=== PATIENT | male | born 1970 | race African-American/Black ===

== ENCOUNTER 2016-08-24 06:54 | Day surgery (SDC) | payer MEDICARE, MEDICAID ==
[~2016-08-24 06:54] MED LIST: CEFAZOLIN 1 GM/D5W RTU 1 GM/50 ML RTUPB IV PRN; FENTANYL CITRATE INJ/PF 250 MCG/5 ML AMPULE ONE; LIDOCAINE 0.5% INJ-PF (5 MG/ML) 50 ML SDV ONE; MIDAZOLAM 2 MG/2 ML INJ ONE; PROPOFOL INJ 200 MG/20 ML VIAL IV ONE
[2016-08-24] MEDS ORDERED: DEXAMETHASONE SOD PHOSPHATE INJ 4 MG/1 ML VIAL ONE ×2 (07:19→07:20)
[2016-08-24] MEDS ORDERED: BUPIVACAINE HCL 0.5 % INJ/PF 30 ML SDV ONE (07:19)
[2016-08-24] MEDS ORDERED: LIDOCAINE 2% INJ (20 MG/ML) 20 ML MDV ONE (07:19)
[2016-08-24] MEDS ORDERED: POLYMYXIN B SULFATE INJ 500000 UNIT VIAL ONE (07:20)
[2016-08-24] MEDS ORDERED: BACITRACIN INJ 50,000 UNIT VIAL ONE (07:20)
[2016-08-24] MEDS ORDERED: NORMAL SALINE INJ/PF 0.9% 10 ML SDV ONE (07:20)
[2016-08-24] MEDS ORDERED: PROPOFOL INJ 200 MG/20 ML VIAL IV ONE (09:18)
--- NOTE | 2016-08-24 09:54 | SURGICARE DISCHARGE SUMMARY E ---
[facility] Discharge Summary NAME: TESHA YOO AGE: 45Y ADMITTED: 08/24/2016 DISCHARGED: 08/24/2016 SURGICAL PROCEDURES: 1. Arthroplasty, fifth digit, left foot. 2. Syndactyly, fourth and fifth digits, left foot. POSTOPERATIVE DIAGNOSES: 1. Hammertoe, fifth digit, left foot. 2. Contracted fifth digit, left foot. SURGEON: Gordy Arriaga DPM GLOBAL SAFETY OFFICER: Anil Jackson DPM SUMMARY: The patient was admitted to [facility] with chief complaint of a painful corn on his fifth toe, left foot. The patient had prior surgery on this a number of years ago but the corn had returned and he wanted it fixed. It was decided since there was a prior surgery on that toe and the digit was short compared to the lesser digits, it was explained to the patient that besides having the toe corrected he would also need to have the fourth and fifth digits sutured together. The patient agreed to the above surgical procedures and was taken to the operating room where he had the above surgical procedures performed. He was then taken to the recovery room. The patient was discharged with a surgical shoe and ice pack, postoperative instructions, and postoperative prescription for Percocet 5 mg/325 mg #40, Phenergan 25 mg #20, and cephalexin 500 mg #4. He was given a follow-up appointment in doctor's office in 1 week and the patient was discharged from [facility]. DICTATING PHYSICIAN: GORDY ARRIAGA D.P.M. [id number] PHY#: [id number] ID: [id number] JOB#: [id number] ACCT: [id number] cc:GORDY ARRIAGA DPM >
--- NOTE | 2016-08-24 11:03 | SURGICARE OPERATIVE REPORT E ---
[facility] Operative Report NAME: TESHA YOO AGE: 45Y DATE OF SURGERY: 08/24/2016 ROOM: PREOPERATIVE DIAGNOSES: 1. Hammertoe fifth left. 2. A contracted fifth digit left. POSTOPERATIVE DIAGNOSES: 1. Hammertoe fifth left. 2. A contracted fifth digit left. SURGICAL PROCEDURES: 1. Arthroplasty fifth digit, left foot. 2. Syndactyly fourth and fifth digits, left foot. SURGEON: GORDY AGGARWAL DPM [employer] SUPERVISOR: Anil Jackson DPM PROCEDURE: Following induction of IV regional local anesthesia, the left foot and leg were prepped and draped in the usual sterile manner. A pneumatic tourniquet was placed around the left ankle and inflated to 250 mmHg after exsanguination of the limb via Esmarch bandage. The following surgical procedures were then performed: 1. Arthroplasty fifth digit, left foot. Attention was directed to the dorsal aspect of the fifth digit of the left foot where an approximately 2 cm dorsal linear incision was made. The incision was deepened via sharp dissection. All bleeders were clamped and bovied as necessary for the purpose of hemostasis. This brought into view a brown colored soft tissue mass lying on top of the extensor digitorum longus tendon. This mass was removed and sent for pathology. The extensor tendon was incised in a transverse fashion at the proximal interphalangeal joint and was reflected proximally from the head of the proximal phalanx. The head of the proximal phalanx was then freed from soft tissue attachments via sharp dissection. Utilizing a Judith bone cutting forceps, the hypertrophied head of the proximal phalanx was osteomized perpendicular to the long axis of the bone and removed in toto from the wound. Attention was directed to the medial aspect of the middle phalanx which was freed from its soft tissue attachments via sharp dissection. Utilizing a rongeur, the hypertrophied condyle on the medial aspect of the middle phalanx was removed. Both sites were then rasped smooth utilizing a handheld crosscut rasp. The area was then flushed with copious amounts of an antibacterial saline solution. The proximal portion of the extensor digitorum longus tendon was sutured plantarly into the flexor digitorum longus tendon so that it covered the stump of the proximal phalanx. The extensor tendon was then coapted and maintained proximal and distal portions utilizing simple interrupted sutures of 3-0 Vicryl. The skin was then coapted and maintained utilizing horizontal mattress sutures of 5-0 nylon. 2. Syndactyly fourth and fifth digits, left foot. A triangle was drawn on the medial aspect of the fifth digit starting at the proximal interphalangeal joint with the apex there and the wings came down on the dorsal and plantar aspects. The fourth and fifth digits were pressed together, so then the matching triangle was then printed on the fourth digit. This resulting wedge of skin was then removed utilizing sharp dissection. The 2 digits were then sutured together utilizing simple interrupted sutures of 5-0 nylon. The sutures were thrown on the plantar aspect of the fourth and fifth digits and then the sutures were thrown on the dorsal aspect of the fourth and fifth digits. It was noted that the incision was closed and the fourth and fifth digits were sutured together with no gaps. The foot was then cleansed utilizing alcohol foam. A dry sterile dressing was then applied consisting of Ollie silk, 4 x 4s, Conform, Kerlix, and Coban. The pneumatic tourniquet was removed. It was noted that all digits were warm and viable and the patient was transferred to the recovery room. DICTATING PHYSICIAN: GORDY AGGARWAL D.P.M. [id number] PHY#: [id number] ID: [id number] JOB#: [id number] ACCT: [id number] cc:GORDY AGGARWAL DPM >
== END 2016-08-24 10:24 | disposition home or self-care (01) ==
LOC: SC 06:54
PROVIDERS: ATTEND Podiatrist Foot Surgery
PROC: 0QBR0ZZ Excision of Left Toe Phalanx, Open Approach (ICD-10-PCS; 2016-08-24)
PROC: 0H8 Skin and Breast, Division (ICD-10-PCS; principal; 2016-08-24 07:30)
DX: M20.42 Other hammer toe(s) (acquired), left foot (principal); M24.575 Contracture, left foot; L28.0 Lichen simplex chronicus; F17.210 Nicotine dependence, cigarettes, uncomplicated; J45.909 Unspecified asthma, uncomplicated; Z79.899 Other long term (current) drug therapy
CPT/HCPCS: 88305 ×2; 28345 ×2; 28285; J2250; J3490 ×5; J0690; J3010; J2704; 1480; J1100

== ENCOUNTER 2018-08-02 21:34 | Emergency (ER) | payer MEDICARE, MEDICAID ==
--- NOTE | 2018-08-02 23:03 | RADIOLOGY REPORT (SQ) ---
EXAM DESCRIPTION: XR WRIST 3 OR MORE VIEWS COMPLETED DATE/TME: 08/02/2018 22:40 CLINICAL HISTORY: 47 years, Male, pain Findings: Bony alignment is anatomic. No fracture or dislocation. Soft tissues are unremarkable. IMPRESSION: No fracture.
--- NOTE | 2018-08-02 23:48 | ER Document Report ---
HPI - HPI Time Seen by Provider: 08/02/18 22:57 Pain Level: 1 Notes: Patient is a 47-year-old male with no significant past medical history who resents to the emergency department complaining of left anterior wrist soreness that started this morning. Patient states that is worse with flexion and extension. He does not recall any injury or heavy lifting activities recently. Patient states that he does not do repetitive motions with his hand either. He has not noticed any bruising, redness, or swelling. The pain does not radiate. Denies IV drug abuse. No other concerns or complaints. Denies any headache, fever, URI, sore throat, chest pain, palpitations, syncope, cough, shortness of breath, wheeze, dyspnea, abdominal pain, nausea/vomiting/diarrhea, urinary retention, dysuria, hematuria, numbness/tingling, muscle paralysis/weakness, or rash. - ROS Systems Reviewed and Negative: Yes All other systems reviewed and negative - MUSCULOSKELETAL Musculoskeletal: REPORTS: Extremity pain - left wrist Past Medical History - Social History Smoking Status: Unknown if Ever Smoked Family History: Reviewed & Not Pertinent Patient has suicidal ideation: No Patient has homicidal ideation: No - Past Medical History Cardiac Medical History: Denies: Hx Heart Attack, Hx Hypertension Pulmonary Medical History: Reports: Hx Asthma - NO MEDS/last episode was more than 2 yrs ago Neurological Medical History: Denies: Hx Cerebrovascular Accident, Hx Seizures Renal/ Medical History: Denies: Hx Peritoneal Dialysis GI Medical History: Denies: Hx Hepatitis, Hx Hiatal Hernia, Hx Ulcer Infectious Medical History: Denies: Hx Hepatitis Past Surgical History: Reports: Hx Orthopedic Surgery. Denies: Hx Open Heart Surgery, Hx Pacemaker - Immunizations Hx Diphtheria, Pertussis, Tetanus Vaccination: No Vertical Provider Document - CONSTITUTIONAL Agree With Documented VS: Yes Notes: PHYSICAL EXAMINATION: GENERAL: Well-appearing, well-nourished and in no acute distress. NECK: Normal range of motion, supple without lymphadenopathy. Non-tender. Spurling neg. LUNGS: Breath sounds clear to auscultation bilaterally and equal. No wheezes rales or rhonchi. HEART: Regular rate and rhythm without murmurs, rubs, gallops. Musculoskeletal: Lt wrist: FROM to passive/active. Strength 5+/5. N/V intact distal. No bony tenderness. Tinel/phalen negative. No scaphoid tenderness. Extremities: No cyanosis, clubbing, or edema b/l. Peripheral pulses 2+. Capillary refill less than 3 seconds. NEUROLOGICAL: Normal speech, normal gait. Normal sensory, motor exams PSYCH: Normal mood, normal affect. SKIN: Warm, Dry, normal turgor, no rashes or lesions noted. - INFECTION CONTROL TRAVEL OUTSIDE OF THE [place] IN LAST 30 DAYS: No Course - Re-evaluation Re-evalutation: 08/02/18 23:47 Patient is an afebrile, well-hydrated, 47-year-old male who presents to the ED with left wrist pain. Vitals are acceptable without any significant tachycardia, tachypnea, or hypoxia. PE is otherwise unremarkable for any neurovascular compromise, obvious tendon/ligament rupture, obvious fracture/dislocation, septic joint. X-ray was unremarkable for any acute pathology. Cock-up provided today. Patient declined any Tylenol or ice. Patient is nontoxic-appearing. No other labs or imaging warranted at this time based on H&P. Conservative measures otherwise for symptoms. Recheck with your PCM in 3-5 days. Consider consult orthopedics. Return to the ED with any worsening/concerning symptoms otherwise as reviewed in discharge. Patient is in agreement. - Vital Signs Vital signs: Temp Pulse Resp BP Pulse Ox 98.0 F 63 17 131/77 H 100 08/02/18 21:59 08/02/18 21:59 08/02/18 21:59 08/02/18 21:59 08/02/18 21:59 Discharge - Discharge Clinical Impression: Left wrist pain Condition: Stable Disposition: HOME, SELF-CARE Additional Instructions: Rest, Ice, Compression, Elevation Use splint as directed Tylenol/ibuprofen as needed Light stretches daily Strength exercises as able Moist heat and massage may help F/u with your PCP in 3-5 days for a recheck Consider consult(s) with Orthopedics/physical therapy for ongoing/worsening symptoms Return to the ED with any worsening symptoms and/or development of fever, head ache, chest pain, palpitations, syncope, shortness of breath, trouble breathing, abdominal pain, n/v/d, muscle weakness/paralysis, numbness/tingling, swelling, redness, or other worsening symptoms that are concerning to you. Forms: Elevated Blood Pressure Referrals: MACO HASSAN MD [Primary Care Provider] - Follow up as needed [facility] [Provider Group] - Follow up as needed
[2018-08-03 01:01] VITALS: BP 116/82
== END 2018-08-03 01:01 | disposition home or self-care (01) ==
LOC: ER 21:34
DX: M25.532 Pain in left wrist (principal); J45.909 Unspecified asthma, uncomplicated
CPT/HCPCS: 99283; 73110; L3908